=== PATIENT | female | born 1985 | race Caucasian/White ===

== ENCOUNTER 2018-07-07 09:14 | Day surgery (SDC) | payer OTHER ==
[2018-07-04 15:00] VITALS: BMI 23.8
[2018-07-07] MEDS ORDERED: Lactated Ringer's 1,000 ML IV ONE ×2 (11:28)
[2018-07-07] MEDS ORDERED: Propofol 10 mg/ml Inj (20 ML) ONE (11:30)
[2018-07-07] MEDS ORDERED: Midazolam 2 MG/2 ML VIAL ONE (11:30)
[2018-07-07] MEDS ORDERED: Lactated Ringer's 500 ML IV SCH (11:45)
[2018-07-07 12:13] VITALS: TEMP 98.7
[2018-07-07 13:32] VITALS: O2SAT 100
[2018-07-07 13:36] VITALS: BP 92/46; PULSE 58; RESP 15
== END 2018-07-07 13:00 | disposition home or self-care (01) ==
LOC: C.ENDO 09:14
PROVIDERS: ATTEND Internal Medicine Gastroenterology
DX: K64.0 First degree hemorrhoids (principal)
CPT/HCPCS: 45378; 84703; J2250; J2704; J7120